=== PATIENT | male | born 1990 | race Hispanic/Latino ===

== ENCOUNTER 2018-07-25 10:07 | Emergency (ER) | payer SELFPAY ==
[2018-07-25] MEDS ORDERED: Ondansetron ODT 4 MG TAB ONE (10:34)
[2018-07-25] MEDS ORDERED: Lidocaine 2% Viscous Solution 10 ML, Aluminum & Magnesium Hydroxide 30 ML SSW SCH (11:00)
[2018-07-25 11:19] LABS: #Basophils 0.1 thou/uL (0.0-0.2); #Lymphocytes 1.5 thou/uL (1.20-3.40); #Monocytes 0.4 thou/uL (0.11-0.59); #Neutrophils 5.8 thou/uL (1.40-6.50); %Basophils 0.8 % (0.0-1.0); %Eosinophils 0.5 % (0.0-10.0); %Neutrophils 74.7 % (42.0-75.0); Hemoglobin 15.2 g/dL (14.0-18.0); Mean Corpuscular HGB CONC 34.2 g/dL (32.0-36.0); Mean Corpuscular Hemoglobin 29.3 pg (27.0-31.0); Mean Corpuscular Volume 85.7 fL (78.0-98.0); Mean Platelet Volume 10.7 fL (7.4-10.4); Platelet Count 165 thou/uL (130-400); RBC Distribution Width 12.3 % (11.5-14.5); Red Blood Cell (RBC) Count 5.18 mill/uL (4.70-6.10); White Blood Cell (WBC) Count 7.7 thou/uL (4.8-10.8)
[2018-07-25 11:39] LABS: ALT (SGPT) 21 U/L (8-55); AST (SGOT) 14 U/L (5-34); Albumin 4.4 g/dL (3.5-5.0); Alkaline Phosphatase 65 U/L (40-150); Anion Gap 14 mmol/L (10-20); BUN (Urea Nitrogen) 16 mg/dL (8.9-20.6); Bilirubin, Total 0.8 mg/dL (0.2-1.2); Calc. Creatinine Clearance 0 mL/min (70-130); Calcium 9.4 mg/dL (7.8-10.44); Carbon Dioxide 22 mmol/L (22-29); Chloride 106 mmol/L (98-107); Estimated GFR-MDRD Greater than 90; Glucose 111 mg/dL (70-105); Lipase 10 U/L (8-78); Potassium 3.8 mmol/L (3.5-5.1); Protein, Total 7.4 g/dL (6.0-8.3); Sodium 138 mmol/L (136-145)
--- NOTE | 2018-07-25 11:43 | RAD ---
PORTABLE CHEST: DATE: 07/25/2018. PROVIDED CLINICAL HISTORY: Epigastric pain. FINDINGS: Cardiac and mediastinal silhouette is within normal limits. No focal consolidation, pleural fluid, o r pneumothorax apparent. IMPRESSION: No evidence for an acute cardiopulmonary process. POS: JAMIEH
--- NOTE | 2018-07-25 12:01 | ULT ---
RIGHT UPPER QUADRANT ULTRASOUND: DATE: 07/25/2018. PROVIDED CLINICAL HISTORY: Right upper quadrant tenderness. FINDINGS: The visualized IVC and pancreas appear normal. The liver demonstrates no mass or intrahepatic biliar y dilatation. The common duct is not dilated. The gallbladder demonstrates no stones, wall thickeni ng, or pericholecystic fluid. The education rep reports a negative sonographic Wilkinson's sign. The rig ht kidney demonstrates no hydronephrosis or mass. IMPRESSION: No evidence for an acute process. POS: CAMILLA
== END 2018-07-25 12:00 | disposition home or self-care (01) ==
LOC: ERS 10:07
DX: K29.00 Acute gastritis without bleeding (principal); I10 Essential (primary) hypertension
CPT/HCPCS: 36415; 71045; 76705; 80053; 83690; 84484; 85025; 93005; Q0162